=== PATIENT | male | born 1955 | race Caucasian/White ===

== ENCOUNTER 2019-05-18 06:12 | Emergency (ER) | payer OTHER, MEDICAID ==
[~2019-05-18] VITALS: Ht 177.8 cm; Wt 113.4 kg
[~2019-05-18 06:12] MED LIST: AMLODIPINE5 MG PO; AUGMENTIN 875 M1 TAB PO; GOOD NEIGHBOR P20 MG PO; HECORIA1 MG PO; HUMI SC; KPHOS PO; LANTI SQ; METOPROLOL100 MG PO; MYCOPHENOLATE500 MG PO; PRE10 PO; VALCYTE50 MG/ML PO; [UNRECOGNIZED DRUG - CODE] PO; [UNRECOGNIZED DRUG - OTHER]
[2019-05-18 06:13] VITALS: BP 0/0; Ht 177.8 cm; Wt 113.4 kg
== END 2019-05-18 09:27 | disposition expired ==
LOC: ED 06:12
DX: I46.9 Cardiac arrest, cause unspecified (principal); I10 Essential (primary) hypertension; E11.9 Type 2 diabetes mellitus without complications; Z85.038 Personal history of other malignant neoplasm of large intestine